=== PATIENT | male | born 1975 | race Caucasian/White ===

== ENCOUNTER 2021-06-24 18:59 | Emergency (ER) | payer OTHER ==
[~2021-06-24] VITALS: Ht 185.4 cm; Wt 95.2 kg
--- OUTSIDE RECORDS SUMMARY | 2021-06-24 19:04 | XMS ---
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 - PHONE: [phone] AMARJIT LACEY [facility] Current PHONE: Unknown [facility] has no Care Guidelines for this patient. EDiogo VISIT COUNT (12 [address] [facility] [address] [place] [address] TOTAL 6 NOTE: Visits indicate total known visits. ED/UCC VISIT TRACKING (12 MO.) 06/24/2021 19:01 MIGUEL Cuellar TYPE: Emergency COMPLAINT: - L FLANK PAIN, GROIN PAIN 06/01/2021 15:07 [facility] [place] TYPE: Emergency DIAGNOSES: - Other chest pain - Chest Pain 04/19/2021 02:57 [facility] [place] TYPE: Emergency DIAGNOSES: - Hypoxemia - Shortness of Breath - Pneumonia, unspecified organism 04/17/2021 13:50 [facility] GENESIS Corley TYPE: Emergency DIAGNOSES: - Pneumonia, unspecified organism - Fever (9 Weeks To 74 Years) - Vomiting (Severe) [facility] DIAGNOSES: - stomach pain, - stomack pain, - Generalized abdominal pain 10/09/2020 00:49 [facility] [place] TYPE: Emergency DIAGNOSES: - Diarrhea, unspecified - Nausea with vomiting, unspecified - FEVER / VOMITING INPATIENT VISIT TRACKING (12 MO.) 04/19/2021 02:57 Maureen Correa M.C. TYPE: Orthopedic DIAGNOSES: - Pneumonia, unspecified organism - Hypoxemia [email or web address]
[2021-06-24] MEDS ORDERED: HYDROCODON-ACE1 EA10 PO (22:13)
[2021-06-24] MEDS ORDERED: FLOMAX0.4 MG PO (22:13)
[2021-06-24] MEDS ORDERED: KETOROLAC TROME10 MG PO (22:13)
== END 2021-06-24 22:46 | disposition home or self-care (01) ==
LOC: ED 18:59
DX: N23 Unspecified renal colic (principal); Z88.0 Allergy status to penicillin
CPT/HCPCS: 36415; 74176; 80048; 81001; 85025; 99284-25

== ENCOUNTER 2021-10-09 16:58 | Emergency (ER) | payer OTHER ==
[~2021-10-09] VITALS: Ht 185.4 cm; Wt 94.3 kg
[~2021-10-09 16:58] MED LIST: FLOMAX0.4 MG PO; HYDROCODON-ACE1 EA10 PO; KETOROLAC TROME10 MG PO
[2021-10-09] MEDS ORDERED: OMEPRAZOLE20 MG PO (17:12)
== END 2021-10-09 21:31 | disposition home or self-care (01) ==
LOC: ED 16:58
DX: R10.31 Right lower quadrant pain (principal); Z88.0 Allergy status to penicillin; Z79.899 Other long term (current) drug therapy
CPT/HCPCS: 74176; 81001; 99284-25